=== PATIENT | male | born 1935 | race African-American/Black ===

== ENCOUNTER 2019-01-27 08:14 | Emergency (ER) | payer MEDICARE, MEDICAID ==
[~2019-01-27 08:14] MED LIST: Sodium Chloride 0.9% 1,000 ML BAG ONE
--- NOTE | 2019-01-27 08:59 | CT ---
CT Brain WO Con History: Trauma Comparison: CT brain March 14, 2018 Findings: Chronic right subdural collection is decreased in size from the July 15, 2017 exam andrew uring up to 3 mm in greatest dimension. This is a chronic collection with no evidence of acuity. Moderate atrophy. Extensive left maxillary sinusitis. No midline shift. No mass effect. The left forehead soft tissues demonstrates laceration. Underlying calvarium is intact. Impression: 1. Size decrease chronic right subdural collection. No evidence of acuity. 2. No acute hemorrhage or territorial infarction. 3. Extensive biparietal cortical atrophy. 4. Left forehead soft tissue contusion/laceration with intact underlying calvarium.
--- NOTE | 2019-01-27 09:00 | CT ---
EXAM: CT cervical spine PROVIDED CLINICAL HISTORY: Trauma COMPARISON: None FINDINGS: No evidence for fracture or traumatic subluxation. No prevertebral soft tissue swelling apparent. Vi sualized lung apices appear clear. Advanced multilevel cervical degenerative changes are seen. IMPRESSION: No evidence for fracture or traumatic subluxation.
--- NOTE | 2019-01-27 09:04 | CT ---
EXAM: CT Thoracic Spine WO Con PROVIDED CLINICAL HISTORY: Trauma COMPARISON: None FINDINGS: No evidence for fracture or traumatic subluxation. Changes of DISH are noted. No prevertebral soft ti ssue swelling apparent. Vascular calcifications are seen. Multilevel degenerative changes are noted. IMPRESSION: No evidence for fracture or traumatic subluxation.
[2019-01-27 09:09] LABS: #Basophils 0.1 thou/uL (0.0-0.2); #Eosinphils 0.4 thou/uL (0.0-0.7); #Monocytes 0.6 thou/uL (0.11-0.59); #Neutrophils 5.1 thou/uL (1.40-6.50); %Basophils 1.4 % (0.0-1.0); %Eosinophils 4.5 % (0.0-10.0); %Lymphocytes 24.5 % (21.0-51.0); %Monocytes 7.2 % (0.0-10.0); %Neutrophils 62.4 % (42.0-75.0); Hemoglobin 14.5 g/dL (14.0-18.0); Mean Corpuscular HGB CONC 31.9 g/dL (32.0-36.0); Mean Corpuscular Hemoglobin 31.3 pg (27.0-31.0); Mean Corpuscular Volume 98.2 fL (78.0-98.0); Mean Platelet Volume 5.9 fL (7.4-10.4); Platelet Count 243 thou/uL (130-400); RBC Distribution Width 12.1 % (11.5-14.5); Red Blood Cell (RBC) Count 4.61 mill/uL (4.70-6.10); White Blood Cell (WBC) Count 8.2 thou/uL (4.8-10.8)
[2019-01-27 09:16] LABS: INR-International Normal Ratio 1.1; PTT 28.6 SEC (22.9-36.1); Prothrombin Time 13.9 SEC (12.0-14.7)
[2019-01-27] MEDS ORDERED: Lidocaine 1% w/Epinephrine 1:100K 20 ML VIAL ONE (09:20)
[2019-01-27 09:31] LABS: ALT (SGPT) 10 U/L (8-55); AST (SGOT) 14 U/L (5-34); Albumin 3.8 g/dL (3.4-4.8); Alkaline Phosphatase 105 U/L (40-150); Anion Gap 15 mmol/L (10-20); BUN (Urea Nitrogen) 9 mg/dL (8.4-25.7); Bilirubin, Total 0.6 mg/dL (0.2-1.2); Calc. Creatinine Clearance 0 mL/min (70-130); Calcium 9.6 mg/dL (7.8-10.44); Carbon Dioxide 26 mmol/L (23-31); Chloride 105 mmol/L (98-107); Estimated GFR-MDRD Greater than 90; Globulin 3.7 g/dL (2.4-3.5); Glucose 100 mg/dL (83-110); Potassium 4.3 mmol/L (3.5-5.1); Protein, Total 7.5 g/dL (5.8-8.1); Sodium 142 mmol/L (136-145)
[2019-01-27] MEDS ORDERED: Adacel (T-DAP) 0.5 ML SYRINGE ONE (10:03)
== END 2019-01-27 10:57 ==
LOC: MADERS 08:14
DX: S01.81XA Laceration without foreign body of other part of head, initial encounter (principal); I95.9 Hypotension, unspecified; T68.XXXA Hypothermia, initial encounter; E78.5 Hyperlipidemia, unspecified; I10 Essential (primary) hypertension; F03.90 Unspecified dementia, unspecified severity, without behavioral disturbance, psychotic disturbance, mood disturbance, and anxiety; Z86.73 Personal history of transient ischemic attack (TIA), and cerebral infarction without residual deficits; Z79.82 Long term (current) use of aspirin; Z79.899 Other long term (current) drug therapy; W18.30XA Fall on same level, unspecified, initial encounter
CPT/HCPCS: 12013; 70450; 72125; 72128; 80053; 85025; 85610; 85730; 90471; 90715; 94760; 96360; J2001; J7050

== ENCOUNTER 2019-04-06 15:50 | Emergency (ER) | payer MEDICARE, MEDICAID ==
--- NOTE | 2019-04-06 17:29 | CT ---
CT BRAIN WITHOUT CONTRAST: 04/06/19 HISTORY: Fall. Pain. Trauma. COMPARISON: 01/27/19. FINDINGS: No parenchymal hemorrhage or extra-axial hematoma. No midline shift. Basilar cisterns are patent. Age appropriate atrophy. Stable loss of cortical stewart-white matter diffe rentiation of the left and right posterior frontal and occipital lobes. Remainder of the cerebrum dem onstrates cortical stewart-white matter differentiation. No hydrocephalus. Calvarium is intact. Complete opacification of the left maxillary sinus and partial opacification of the ethmoid air cells. Sinus opacification is unchanged. IMPRESSION: No acute intracranial process. POS: PPP
== END 2019-04-06 18:27 | disposition home or self-care (01) ==
LOC: MADERS 15:50
DX: S09.90XA Unspecified injury of head, initial encounter (principal); E78.5 Hyperlipidemia, unspecified; I10 Essential (primary) hypertension; F03.90 Unspecified dementia, unspecified severity, without behavioral disturbance, psychotic disturbance, mood disturbance, and anxiety; Z86.73 Personal history of transient ischemic attack (TIA), and cerebral infarction without residual deficits; Z79.82 Long term (current) use of aspirin; Z79.899 Other long term (current) drug therapy; W18.30XA Fall on same level, unspecified, initial encounter
CPT/HCPCS: 70450

== ENCOUNTER 2020-02-07 08:42 | Emergency (ER) | payer MEDICARE, MEDICAID ==
[2020-02-07 09:14] LABS: #Basophils 0.1 thou/uL (0.0-0.2); #Lymphocytes 1.6 thou/uL (1.20-3.40); #Monocytes 1.5 thou/uL (0.11-0.59); #Neutrophils 13.1 thou/uL (1.40-6.50); %Basophils 0.7 % (0.0-1.0); %Eosinophils 0.1 % (0.0-10.0); %Monocytes 9.1 % (0.0-10.0); %Neutrophils 80.1 % (42.0-75.0); Hemoglobin 13.6 g/dL (14.0-18.0); Mean Corpuscular HGB CONC 31.5 g/dL (32.0-36.0); Mean Corpuscular Hemoglobin 31.6 pg (27.0-31.0); Mean Corpuscular Volume 100.3 fL (78.0-98.0); Platelet Count 236 thou/uL (130-400); RBC Distribution Width 12.3 % (11.5-14.5); Red Blood Cell (RBC) Count 4.31 mill/uL (4.70-6.10); White Blood Cell (WBC) Count 16.4 thou/uL (4.8-10.8)
[2020-02-07 09:19] LABS: Prothrombin Time 13.6 sec (12.0-14.7)
[2020-02-07 09:28] LABS: ALT (SGPT) 25 U/L (8-55); AST (SGOT) 21 U/L (5-34); Albumin 3.5 g/dL (3.4-4.8); Alkaline Phosphatase 96 U/L (40-110); Anion Gap 14 mmol/L (10-20); BUN (Urea Nitrogen) 18 mg/dL (8.4-25.7); Bilirubin, Total 0.7 mg/dL (0.2-1.2); CK (CPK) 243 U/L (30-200); Calc. Creatinine Clearance 0 mL/min (70-130); Calcium 9.3 mg/dL (7.8-10.44); Carbon Dioxide 24 mmol/L (23-31); Chloride 105 mmol/L (98-107); Estimated GFR-MDRD Greater than 90; Globulin 3.9 g/dL (2.4-3.5); Glucose 120 mg/dL (83-110); Potassium 4.6 mmol/L (3.5-5.1); Protein, Total 7.4 g/dL (5.8-8.1); Sodium 138 mmol/L (136-145)
--- NOTE | 2020-02-07 09:42 | RAD ---
Portable frontal chest radiograph: 02/07/2020 COMPARISON: 07/15/2017 HISTORY: Fall FINDINGS: No focal consolidation or alveolar edema. Shallow inspiration limits detailed assessment. S upine imaging is provided, which limits assessment for pleural fluid and pneumothorax. Heart and mediastinal contours are stable. IMPRESSION: No acute findings.
--- NOTE | 2020-02-07 09:51 | CT ---
EXAM: CT of the cervical spine without contrast HISTORY: Neck pain after fall and head trauma COMPARISON: None TECHNIQUE: Multiple contiguous axial images were obtained in a CT of the cervical spine without contr ast. Sagittal and coronal reformats were performed. FINDINGS: This exam is limited secondary to motion artifact. The vertebral bodies demonstrate normal height and alignment without fracture or subluxation. Moderate degenerative changes are seen throughout the cervical spine. No prevertebral soft tissue swelling is seen. The posterior facets are well aligned. Normal alignment of the skull base with the cervical spine is seen. The lung apices are unremarkable. Calcifications are seen in the right carotid artery. IMPRESSION: No evidence of acute osseous abnormality of the cervical spine.
--- NOTE | 2020-02-07 10:01 | CT ---
CT BRAIN WITHOUT CONTRAST: HISTORY:Fall. No loss of consciousness COMPARISON:04/06/2019 FINDINGS: There are foci of decreased attenuation in the periventricular white matter, consistent with chronic small vessel ischemic disease. 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 No evidence of acute infarct, hemorrhage, midline shift or abnormal extra-axial fluid collections is seen. The ventricular size is appropriate and the basilar cisterns are patent. The bony calvarium is intact. There is mucosal disease in the paranasal sinuses. IMPRESSION: No CT evidence of acute intracranial process.
[2020-02-07 12:25] LABS: Lactic Acid 1.2 mmol/L (0.5-2.2)
[2020-02-07] MEDS ORDERED: Sodium Chloride 0.9% 500 ML ONE (12:59)
[2020-02-07 13:06] LABS: Bilirubin Negative (Negative); Blood, Urine Negative (Negative); Clarity Slightly Cloudy (Clear); Glucose, Urine (Dipstick) Negative (Negative); Ketone, Urine Negative (Negative); Leukocyte Large (Negative); Nitrite Negative (Negative); Protein, Urine (Dipstick) 100 mg/dL (Neg-Trace); Specific Gravity, Urine 1.015 (1.005-1.030); Urobilinogen 0.2 mg/dL (Less than 2); pH, Urine 8.5 (5.0-9.0)
[2020-02-07 13:22] LABS: Bacteria/HPF 3+ HPF (None Seen); RBC/HPF 0-3 HPF (0-3); WBC/HPF Greater Than 50 HPF (0-3)
[2020-02-07] MEDS ORDERED: cefTRIAXone\\ROCEPHIN 1 GM VIAL ONE (14:14)
== END 2020-02-07 16:22 ==
LOC: MADERS 08:42
DX: S80.212A Abrasion, left knee, initial encounter (principal); S80.211A Abrasion, right knee, initial encounter; N39.0 Urinary tract infection, site not specified; E78.5 Hyperlipidemia, unspecified; I10 Essential (primary) hypertension; F03.90 Unspecified dementia, unspecified severity, without behavioral disturbance, psychotic disturbance, mood disturbance, and anxiety; Z86.73 Personal history of transient ischemic attack (TIA), and cerebral infarction without residual deficits; Z79.82 Long term (current) use of aspirin; Z79.899 Other long term (current) drug therapy; W17.89XA Other fall from one level to another, initial encounter
CPT/HCPCS: 70450; 71045; 72125; 80053; 81003; 81015; 82550; 83605; 85025; 85610; 87086; 96374; J0696; J7030

== ENCOUNTER 2020-10-05 17:52 | Outpatient (CLI) | payer MEDICARE, MEDICAID ==
[2020-10-05 18:38] LABS: ALT (SGPT) 16 U/L (8-55); AST (SGOT) 17 U/L (5-34); Albumin 3.3 g/dL (3.4-4.8); Alkaline Phosphatase 79 U/L (40-110); Anion Gap 17 mmol/L (10-20); BUN (Urea Nitrogen) 19 mg/dL (8.4-25.7); Bilirubin, Total 0.4 mg/dL (0.2-1.2); Calc. Creatinine Clearance 0 mL/min (70-130); Calcium 9.4 mg/dL (7.8-10.44); Carbon Dioxide 24 mmol/L (23-31); Cardiac Risk 2.9 (Less than 4.5); Chloride 102 mmol/L (98-107); Cholesterol 123 mg/dl (< 200 Desired); Globulin 4.3 g/dL (2.4-3.5); HDL Cholesterol 43 mg/dL (>60 Neg Risk); LDL Cholesterol, Calculated 66 mg/dL; Protein, Total 7.6 g/dL (5.8-8.1); Sodium 139 mmol/L (136-145); Triglycerides 71 mg/dL (Less than 150)
[2020-10-05 19:02] LABS: Glucose 48 mg/dL (83-110)
== END 2020-10-05 17:53 | disposition home or self-care (01) ==
LOC: MADLAB 17:52
PROVIDERS: ATTEND Family Medicine
DX: E78.2 Mixed hyperlipidemia (principal)
CPT/HCPCS: 80053; 80061

== ENCOUNTER 2021-04-07 15:51 | Outpatient (CLI) | payer MEDICARE, MEDICAID ==
[2021-04-07 16:24] LABS: ALT (SGPT) 32 U/L (8-55); AST (SGOT) 23 U/L (5-34); Albumin 3.5 g/dL (3.4-4.8); Alkaline Phosphatase 93 U/L (40-110); Anion Gap 14 mmol/L (10-20); BUN (Urea Nitrogen) 22 mg/dL (8.4-25.7); Bilirubin, Total 0.5 mg/dL (0.2-1.2); Calc. Creatinine Clearance 0 mL/min (70-130); Calcium 9.4 mg/dL (7.8-10.44); Carbon Dioxide 25 mmol/L (23-31); Cardiac Risk 2.9 (Less than 4.5); Chloride 107 mmol/L (98-107); Cholesterol 131 mg/dl (< 200 Desired); Globulin 4.4 g/dL (2.4-3.5); Glucose 121 mg/dL (83-110); HDL Cholesterol 45 mg/dL (>60 Neg Risk); LDL Cholesterol, Calculated 68 mg/dL; Potassium 4.5 mmol/L (3.5-5.1); Protein, Total 7.9 g/dL (5.8-8.1); Sodium 141 mmol/L (136-145); Triglycerides 88 mg/dL (Less than 150)
== END 2021-04-07 15:52 | disposition home or self-care (01) ==
LOC: MADLAB 15:51
PROVIDERS: ATTEND Family Medicine
DX: E78.2 Mixed hyperlipidemia (principal); L89.154 Pressure ulcer of sacral region, stage 4
CPT/HCPCS: 80053; 80061